=== PATIENT | female | born 1965 | race Caucasian/White ===

== ENCOUNTER 2018-10-04 11:37 | Day surgery (SDC) | payer OTHER ==
[~2018-10-04] VITALS: Ht 172.7 cm; Wt 76.9 kg
[~2018-10-04 11:37] MED LIST: 5-HY100C3 PO; BIOT25005 PO; OLME1TAB30 PO
[2018-10-04] MEDS ORDERED: LACTATED RINGERS 1,000 ML IV SCH (12:10)
[2018-10-04 12:20] VITALS: BP 124/79
[2018-10-04] MEDS ORDERED: FENTANYL PF 250 MCG/5ML ONE (12:40)
[2018-10-04] MEDS ORDERED: MIDAZOLAM 1 MG/ML, 2ML ONE (12:40)
[2018-10-04] MEDS ORDERED: hydrALAzine 20 MG/ML, 1ML IV PRN (14:00)
[2018-10-04] MEDS ORDERED: ACETAMINOPHEN 325 MG TABLET PO PRN (14:00)
[2018-10-04] MEDS ORDERED: HYDROmorphone 2 MG/ML, 1ML IVPush PRN (14:00)
[2018-10-04] MEDS ORDERED: FENTANYL PF 100 MCG/2ML IV PRN (14:00)
[2018-10-04] MEDS ORDERED: OXYcodone 5 MG/5 ML ORAL.SOL UDC PO PRN (14:00)
[2018-10-04] MEDS ORDERED: MEPERIDINE/PF 25MG/0.5ML IVPush PRN (14:00)
[2018-10-04] MEDS ORDERED: PROMETHAZINE 25 MG/ML, 1ML IV PRN (14:00)
[2018-10-04] MEDS ORDERED: ONDANSETRON 2MG/ML, 2ML IV PRN (14:00)
[2018-10-04] MEDS ORDERED: LABETALOL 5MG/ML, 20ML IV PRN (14:00)
[2018-10-04] MEDS ORDERED: LIDOCAINE 1%-EPI 1:100K, 30ML ONE (14:21)
[2018-10-04] MEDS ORDERED: OXYMETAZOLINE NASAL SPRAY 0.05%, 15ML ONE (14:21)
[2018-10-04] MEDS ORDERED: BACITRACIN OINT 500U/GM, 15 GM ONE (14:31)
[2018-10-04] MEDS ORDERED: FLUORESCEIN SODIUM 500 MG/5 ML ONE (14:31)
[2018-10-04] MEDS ORDERED: EPINEPHRINE TOPICAL SOLN 1 MG/ML, 30ML ONE (14:31)
[2018-10-04] MEDS ORDERED: CEFAZOLIN 1,000 MG ONE (14:33)
[2018-10-04] MEDS ORDERED: DEXAMETHASONE 4 MG/ML, 1ML ONE ×2 (14:41→16:05)
[2018-10-04] MEDS ORDERED: ONDANSETRON 2MG/ML, 2ML ONE (16:05)
[2018-10-04] MEDS ORDERED: ROCURONIUM 10MG/ML,5ML ONE (16:05)
[2018-10-04] MEDS ORDERED: PROPOFOL 10 MG/ML, 20ML ONE (16:05)
[2018-10-04] MEDS ORDERED: ACETAMINOPHEN 650 MG/20.3 ML UDC ONE (16:38)
[2018-10-04] MEDS ORDERED: FENTANYL PF 100 MCG/2ML ONE (16:39)
[2018-10-04] MEDS ORDERED: OXYcodone 5 MG/5 ML ORAL.SOL UDC ONE (16:39)
== END 2018-10-04 19:17 | disposition home or self-care (01) ==
LOC: OUT 11:37
PROVIDERS: ATTEND Student in an Organized Health Care Education/Training Program
DX: J32.0 Chronic maxillary sinusitis (principal); J34.89 Other specified disorders of nose and nasal sinuses
CPT/HCPCS: 31253; 31256; 31287; 61782; 87070; 87075; 87205; 88304; J0690; J1100; J2250; J2405; J2704; J3010; J3490; J7120; 88305